=== PATIENT | female | born 1955 | race Caucasian/White ===

== ENCOUNTER 2018-05-14 13:43 | Inpatient (IN) ==
--- NOTE | 2018-05-14 14:17 | Emergency Department Report ---
General Adult HPI - General Chief complaint: GI Bleed Stated complaint: rectal bleeding Time Seen by Provider: 05/14/18 14:12 Source: patient Mode of arrival: wheelchair Limitations: no limitations - History of Present Illness HPI narrative: 62 F presents to the emergency department with the chief complaint of rectal bleeding. Patient noted onset of symptoms 3 days ago. She is not anticoagulated. She denies any pain or discomfort. She has noticed bright red blood in the toilet bowl with each bowel movement. She states that she has had "several bowel movements today." She has a history of GI bleeding in the past. She last had a colonoscopy/EGD within the past year with Dr. Victoria of general surgery. She feels generally weak and lightheaded. No other complaints or associated symptoms. She was at home when her symptoms began. - Related Data Home Medications Medication Instructions Recorded Confirmed Allopurinol [Zyloprim] 100 mg PO DAILY 10/31/17 05/14/18 Cholecalciferol (Vitamin D3) 5,000 unit PO DAILY 10/31/17 05/14/18 [Vitamin D3] Cyanocobalamin (Vitamin B-12) 500 mcg PO DAILY 10/31/17 05/14/18 [Vitamin B-12] Magnesium Oxide [Magnesium] 500 mg PO DAILY 10/31/17 05/14/18 Metoprolol Tartrate [Lopressor] 25 mg PO BID 10/31/17 05/14/18 Omeprazole [Prilosec] 20 mg PO BID 10/31/17 05/14/18 Aspirin [Adult Aspirin] 81 mg PO DAILY 05/14/18 05/14/18 Ferrous Sulfate [Iron] 325 mg PO DAILY 05/14/18 05/14/18 Meclizine [Antivert] 25 mg PO TID PRN 05/14/18 05/14/18 Naproxen Sodium [Aleve] 220 mg PO BID PRN 05/14/18 05/14/18 Allergies Allergy/AdvReac Type Severity Reaction Status Date / Time diazepam Allergy Unknown RASH Verified 05/14/18 13:55 Review of Systems Constitutional: Denies: fever, chills Eyes: Denies: eye pain, vision change ENT: Denies: ear pain, throat pain Cardiovascular: Denies: chest pain, palpitations Respiratory: Denies: cough, dyspnea Gastrointestinal: Reports: hematochezia. Denies: abdominal pain, nausea, vomiting, diarrhea, hematemesis Genitourinary: Denies: urgency, dysuria Musculoskeletal: Denies: back pain, arthralgia Integumentary: Denies: erythema, rash Neurological: Denies: headache, numbness, paresthesias Psychiatric: Denies: anxiety, depression Endocrine: Denies: polydipsia, polyuria Hematological/Lymphatic: Denies: easy bruising, lymphadenopathy Allergic/Immunologic: Denies: facial swelling, urticaria FORMERLY [facility], 1928–1983 Patient Stated Medical History Cerebrovascular Accident No Paralysis No Seizures No Syncope No Cataracts Yes Cardiac Arrhythmia Yes: Hx afib- currently SR with rate controlled Hypertension Yes Asthma No Bronchitis No Chronic Obstructive Pulmonary No Disease (COPD) Pneumonia No Pulmonary Edema No Pulmonary Embolism No Sleep Apnea No Tuberculosis No Other Respiratory No Diabetes Mellitus Type 1 No Diabetes Mellitus Type 2 No Gastroesophageal Reflux Yes Disease Hiatal Hernia Yes Other GI Yes: RECTAL BLEEDING,DIVERTICULOSIS Anemia Yes Osteoarthritis No Other Musculoskeletal No Anesthesia Reactions No Blood Transfusions No Chemotherapy No Malignant Hyperthermia No Other No Depression No Post Menopausal Yes Now No Clinic Medical History (Last Updated 05/14/18 @ 16:00 by Diana Quiñones, ANNMARIE) Alcohol abuse (Acute Medical) Allergic rhinitis (Acute Medical) Anemia (Acute Medical) Elevated liver enzymes (Acute Medical) Essential (primary) hypertension (Acute Medical) GERD (gastroesophageal reflux disease) (Acute Medical) Hyperlipidemia (Acute Medical) Paroxysmal atrial fibrillation (Acute Medical) Surgical History: 1. Tonsillectomy and adenoidectomy as a child at [place], [place]. 2. Left knee operation in [address] Joey Chavira at [place], [place]. 3. Left knee operation in [address] Joey Chavira and Dr. Mike Cerna at [place], [place]. 4. Left knee operation in [address] Cerna at [place], [place]. 5. Left hip intramedullary nailing on by Dr. José Dickerson at [place], [place]. Postoperative diagnosis was left intertrochanteric hip fracture. 6. Esophagogastroduodenoscopy with biopsies on 02/09/[address] Victoria at [facility] at [place], [place]. Postoperative diagnoses were chronic dysphagia, normal esophagram on 02/08/2016, chronic anemia, small hiatal hernia and antral gastritis and antral gastric erosions. Discharge diagnoses for this hospitalization in January 2016 were closed intertrochanteric fracture of left femur, tachycardia, chronic anemia, chronic elevated liver function tests, premature ventricular contractions, chronic alcohol dependence, and hypomagnesemia. 7. Cataract operation at one eye in November 2016 at the [facility] at [place], [place]. 8. Cataract operation at other eye in December 2016 at the [facility] at [place], [place]. 9. Esophagogastroduodenoscopy and total colonoscopy on 05/05/[address] Victoria at [facility] at [place], [place]. This was performed for evaluation of anemia. No cause for the anemia was found at esophagogastroduodenoscopy or total colonoscopy. The patient was found at esophagogastroduodenoscopy to have a small hiatal hernia. Findings were otherwise normal at the upper gastrointestinal tract. The patient did have some moderate sigmoid colon diverticulosis found at total colonoscopy. The patient also had some internal and external hemorrhoids with prominent internal hemorrhoids. The patient had been experiencing hematochezia which was thought to be due to bleeding from internal hemorrhoids. Family History: Family History (Last Updated 05/14/18 @ 16:04 by Diana Quiñones APRN) Father Heart attack of heart attack at age 55 Paternal Grandmother Heart disease Maternal Grandmother Heart disease Brother Motorcycle accident in 1972 from injuries Mother Unknown family medical history Brother Unknown family medical history - Social History Smoking status: Never smoker Substance use type: does not use Alcohol intake: current Alcohol intake frequency: 0-2 drinks per day Household members: none Does patient use chewing tobacco?: Yes ( uses chew every day for last 50 yrs) Physical Exam - Limitations Limitations: no limitations - General General appearance: alert, in no apparent distress - Normal Exams: Head:: Normocephalic without trauma Eyes:: Pupils are PERRLA w/ EOMI, No scleral icterus, irritation, or foreign bodies noted (Pale conjunctiva) ENMT:: No facial trauma, nasal exudates, pharyngeal erythema, or exudates are noted Dental: No fractured, loose, or missing teeth noted Neck:: Full range of motion, without adenopathy, JVD, bruits or thyromegaly Chest/Respirations:: Clear all willis, with good airflow, and symmetry bilaterally Cardiovascular:: Regular rate and rhythm, without murmur or gallop, Pulses 2+ all extremities, capillary refill, <2 seconds all extremities Abdomen:: Bowel sounds positive, soft, non-tender, non-distended, no hepatosplenomegaly, masses or bruits noted (Rectal Exam - maroon stool which was heme-positive.) Lymphatic:: No lymphadenopathy, or lymphedema noted Musculoskeletal:: No tenderness, or deformity noted, good range of motion, all extremities Integumentary:: No rashes, hives, or bruising noted, hair and nails, without abnormality Neurological:: Patient is alert, and oriented, cranial nerves, motor/sensory/ cerebellar, exams w/o gross deficits, to observation Psychiatric:: Patient exhibits, appropriate attention, emotion and affect Course Vital Signs Temperature 97.5 F 05/14/18 13:55 Pulse Rate 74 05/14/18 13:55 Respiratory Rate 19 05/14/18 13:55 Blood Pressure 86/47 05/14/18 13:55 Pulse Oximetry 95 05/14/18 13:55 Temperature 97.7 F 05/14/18 16:04 Pulse Rate 79 05/14/18 19:01 Respiratory Rate 25 H 05/14/18 19:16 Blood Pressure 99/59 05/14/18 19:01 Pulse Oximetry 100 05/14/18 19:16 Medical Decision Making - [facility] Narrative Medical decision making narrative: Labs were discussed in detail with the patient and questions are answered. Patient was given a 500 mL bolus of normal saline intravenously times one in the emergency department. Patient is typed and crossed for 2 units of packed red blood cells. Patient is ordered transfusion of red blood cells in the emergency department. Patient is discussed with Dr. Dean who will admit the patient to CCU for further evaluation and treatment. Dr. Dean will consult general surgery Dr. Victoria who has seen the patient in the past. Urinalysis is pending at time of admission and will be followed by accepting physician. Patient is admitted to the CCU in improved condition. No further orders from accepting physician who is in agreement with the current plan of management. Patient was given 40 mg of Protonix IV times one. Patient was given 40 meq of potassium iv x 1 in the ED. - Differential Diagnosis rectal bleeding, GI bleeding, gastritis, metabolic disorder, anemia - Lab Data Result diagrams: 05/14/18 14:25 05/14/18 14:25 Lab Results 05/14/18 05/14/18 05/14/18 Range/Units 14:25 14:25 14:25 WBC 10.8 (4.5-11.0) T/MM3 RBC 1.35 L (4.00-5.20) M/MM3 Hgb 5.0 L* (12-16) GM/DL Hct 16.0 L* (36-46) % MCV 118.5 H (80-100) UM3 MCH 37.0 H (26-34) UUG MCHC 31.3 (31-37) GM/DL RDW Std Deviation 86.0 H (36.9-50.2) FL Plt Count 123 L D (130-400) T/MM3 MPV 10.7 (9.4-12.4) UM3 Immature Gran % (Auto) 0.3 (0.0-0.5) % Neut % (Auto) 80.3 H (33-66) % Lymph % (Auto) 9.4 L (23-45) % Brantley % (Auto) 9.2 H (0-9.0) % Eos % (Auto) 0.5 (0-4) % Baso % (Auto) 0.3 (0-2) % Neut # (Auto) 8.7 H (1.8-7.7) T/MM3 Lymph # (Auto) 1.0 (1-4.8) T/MM3 Brantley # (Auto) 1.0 H (0-0.8) T/MM3 Eos # (Auto) 0.1 (0-0.5) T/MM3 Baso # (Auto) 0.0 (0-0.2) T/MM3 Abs Immat Gran (auto) 0.03 (0.00-0.03) T/MM3 INR 1.31 H (0.92-1.18) APTT 30.5 (24-36) SEC Turbidity < 20 (0-20) Sodium 144 (136-146) MEQ/L Potassium 2.5 L* (3.6-5) MEQ/L Chloride 105 (98-107) MEQ/L Carbon Dioxide 21 L (22-30) MEQ/L Anion Gap 18 H (5-15) meq/L BUN 9.0 (7-17) MG/DL Creatinine 0.9 (0.7-1.2) mg/dL Estimated Creat Clear 60 (>50) mL/min GFR Calculation 64 (>60) mL/min BUN/Creatinine Ratio 10 (6-26) RATIO Glucose 104 (65-110) MG/DL Calculated Osmolality 276 (261-280) MOSM/KG Calcium 8.5 (8.4-10.2) MG/DL Magnesium (1.6-2.3) MG/DL Iron (37-170) ug/dL TIBC (261-497) ug/dL % Saturation (9-55) % Ferritin (11-264) ng/mL Total Bilirubin 2.20 H (0.20-1.30) MG/DL Icterus Index < 2 (0-7) AST 84 H (14-36) U/L ALT 27 (1-35) U/L Alkaline Phosphatase 155 H (38-126) U/L Troponin I < 0.012 (0-0.12) ng/ml Total Protein 6.1 L (6.3-8.2) g/dL Albumin 2.8 L (3.5-5.0) g/dL Globulin 3.3 (2.4-3.6) G/DL Albumin/Globulin Ratio 0.8 L (1.1-2.2) RATIO Specimen Hemolysis < 15 (0-25) Ur Collection Type Urine Color (YELLOW) Urine Clarity Urine pH (5.0-8.0) Ur Specific Duncan (1.015-1.025) Urine Protein (NEGATIVE) Urine Glucose (UA) (NEGATIVE) Urine Ketones (NEGATIVE) Urine Occult Blood (NEGATIVE) Urine Nitrate (NEGATIVE) Urine Bilirubin (NEGATIVE) Urine Urobilinogen (NORMAL) EU/DL Ur Leukocyte Esterase (NEGATIVE) Urine RBC (0-3) /HPF Urine WBC (0-5) /HPF Urine WBC Clumps Ur Squamous Epith Cells Amorphous Sediment Urine Bacteria (NEGATIVE) Fatty Casts /LPF Ur Culture Indicated? Blood Type Antibody Screen Crossmatch (AHG) 05/14/18 05/14/18 05/14/18 Range/Units 14:25 14:25 14:25 WBC (4.5-11.0) T/MM3 RBC (4.00-5.20) M/MM3 Hgb (12-16) GM/DL Hct (36-46) % MCV (80-100) UM3 MCH (26-34) UUG MCHC (31-37) GM/DL RDW Std Deviation (36.9-50.2) FL Plt Count (130-400) T/MM3 MPV (9.4-12.4) UM3 Immature Gran % (Auto) (0.0-0.5) % Neut % (Auto) (33-66) % Lymph % (Auto) (23-45) % Brantley % (Auto) (0-9.0) % Eos % (Auto) (0-4) % Baso % (Auto) (0-2) % Neut # (Auto) (1.8-7.7) T/MM3 Lymph # (Auto) (1-4.8) T/MM3 Brantley # (Auto) (0-0.8) T/MM3 Eos # (Auto) (0-0.5) T/MM3 Baso # (Auto) (0-0.2) T/MM3 Abs Immat Gran (auto) (0.00-0.03) T/MM3 INR (0.92-1.18) APTT (24-36) SEC Turbidity (0-20) Sodium (136-146) MEQ/L Potassium (3.6-5) MEQ/L Chloride (98-107) MEQ/L Carbon Dioxide (22-30) MEQ/L Anion Gap (5-15) meq/L BUN (7-17) MG/DL Creatinine (0.7-1.2) mg/dL Estimated Creat Clear (>50) mL/min GFR Calculation (>60) mL/min BUN/Creatinine Ratio (6-26) RATIO Glucose (65-110) MG/DL Calculated Osmolality (261-280) MOSM/KG Calcium (8.4-10.2) MG/DL Magnesium 1.3 L (1.6-2.3) MG/DL Iron 39 (37-170) ug/dL TIBC 236 L (261-497) ug/dL % Saturation 17 (9-55) % Ferritin 36.0 (11-264) ng/mL Total Bilirubin (0.20-1.30) MG/DL Icterus Index (0-7) AST (14-36) U/L ALT (1-35) U/L Alkaline Phosphatase (38-126) U/L Troponin I (0-0.12) ng/ml Total Protein (6.3-8.2) g/dL Albumin (3.5-5.0) g/dL Globulin (2.4-3.6) G/DL Albumin/Globulin Ratio (1.1-2.2) RATIO Specimen Hemolysis (0-25) Ur Collection Type Urine Color (YELLOW) Urine Clarity Urine pH (5.0-8.0) Ur Specific Duncan (1.015-1.025) Urine Protein (NEGATIVE) Urine Glucose (UA) (NEGATIVE) Urine Ketones (NEGATIVE) Urine Occult Blood (NEGATIVE) Urine Nitrate (NEGATIVE) Urine Bilirubin (NEGATIVE) Urine Urobilinogen (NORMAL) EU/DL Ur Leukocyte Esterase (NEGATIVE) Urine RBC (0-3) /HPF Urine WBC (0-5) /HPF Urine WBC Clumps Ur Squamous Epith Cells Amorphous Sediment Urine Bacteria (NEGATIVE) Fatty Casts /LPF Ur Culture Indicated? Blood Type O Positive Antibody Screen Negative Crossmatch (AHG) See Detail 05/14/18 Range/Units 15:15 WBC (4.5-11.0) T/MM3 RBC (4.00-5.20) M/MM3 Hgb (12-16) GM/DL Hct (36-46) % MCV (80-100) UM3 MCH (26-34) UUG MCHC (31-37) GM/DL RDW Std Deviation (36.9-50.2) FL Plt Count (130-400) T/MM3 MPV (9.4-12.4) UM3 Immature Gran % (Auto) (0.0-0.5) % Neut % (Auto) (33-66) % Lymph % (Auto) (23-45) % Brantley % (Auto) (0-9.0) % Eos % (Auto) (0-4) % Baso % (Auto) (0-2) % Neut # (Auto) (1.8-7.7) T/MM3 Lymph # (Auto) (1-4.8) T/MM3 Brantley # (Auto) (0-0.8) T/MM3 Eos # (Auto) (0-0.5) T/MM3 Baso # (Auto) (0-0.2) T/MM3 Abs Immat Gran (auto) (0.00-0.03) T/MM3 INR (0.92-1.18) APTT (24-36) SEC Turbidity (0-20) Sodium (136-146) MEQ/L Potassium (3.6-5) MEQ/L Chloride (98-107) MEQ/L Carbon Dioxide (22-30) MEQ/L Anion Gap (5-15) meq/L BUN (7-17) MG/DL Creatinine (0.7-1.2) mg/dL Estimated Creat Clear (>50) mL/min GFR Calculation (>60) mL/min BUN/Creatinine Ratio (6-26) RATIO Glucose (65-110) MG/DL Calculated Osmolality (261-280) MOSM/KG Calcium (8.4-10.2) MG/DL Magnesium (1.6-2.3) MG/DL Iron (37-170) ug/dL TIBC (261-497) ug/dL % Saturation (9-55) % Ferritin (11-264) ng/mL Total Bilirubin (0.20-1.30) MG/DL Icterus Index (0-7) AST (14-36) U/L ALT (1-35) U/L Alkaline Phosphatase (38-126) U/L Troponin I (0-0.12) ng/ml Total Protein (6.3-8.2) g/dL Albumin (3.5-5.0) g/dL Globulin (2.4-3.6) G/DL Albumin/Globulin Ratio (1.1-2.2) RATIO Specimen Hemolysis (0-25) Ur Collection Type Urine, void-cc/notcc Urine Color Yellow (YELLOW) Urine Clarity Sl cloudy Urine pH 6.0 (5.0-8.0) Ur Specific Duncan 1.015 (1.015-1.025) Urine Protein 1+ A (NEGATIVE) Urine Glucose (UA) Negative (NEGATIVE) Urine Ketones 1+ A (NEGATIVE) Urine Occult Blood 2+ A (NEGATIVE) Urine Nitrate Positive A (NEGATIVE) Urine Bilirubin 2+ A (NEGATIVE) Urine Urobilinogen 1.0 (NORMAL) EU/DL Ur Leukocyte Esterase Trace A (NEGATIVE) Urine RBC 5-10 H (0-3) /HPF Urine WBC 5-10 H (0-5) /HPF Urine WBC Clumps Few Ur Squamous Epith Cells 5-10 Amorphous Sediment Few Urine Bacteria 3+ H (NEGATIVE) Fatty Casts 0-1 /LPF Ur Culture Indicated? Cult reflexed &setup Blood Type Antibody Screen Crossmatch (AHG) - EKG Data EKG #1 EKG results narrative: Sinus rhythm with first-degree AV block. 70 bpm. No STEMI. Left bundle branch block. Similar to EKG from 05/17/16. Critical Care Time Critical Care Time: Yes Total Critical Care Time: 43 Attestation: 43 minutes of critical care was assessed to the patient due to having a hemoglobin of 5.0. Patient will be transfused 2 units of packed red blood cells. Patient required complex medical decision making, repeated assessment at the bedside, and had potential for decompensation. Patient was admitted to the CCU for further evaluation and treatment. Vehicle care time was spent treating the patient, documenting the medical record, updating family, and making telephone calls on the patient's behalf. Disposition Clinical Impression: Severe anemia GI bleed Qualifiers: GI bleed type/associated pathology: unspecified gastrointestinal hemorrhage type Qualified Code(s): K92.2 - Gastrointestinal hemorrhage, unspecified Disposition: To [facility] Acute Care Condition: Stable Time of Disposition: 15:00 - Seen By: physician
[2018-05-14] MEDS: SALINE FLUSH 10ml SYRINGE IVF PRN (14:28)
--- OUTSIDE RECORDS SUMMARY | 2018-05-14 14:33 | External Medical Summary | Summary of Care ---
:1955 Author Name Crow Paris M.D. Address Unavailable Unavailable , Care Team Providers Name Role Phone Wellington Gutierrez, Crow Unavailable Unavailable Cain Solis II Unavailable Unavailable Functional Status Functional Status Health Issues Name Dates Details Functional status health issues are not documented Status: Cognitive Status Health Issues Name Dates Details Cognitive status health issues are not documented Status: Problems Name Dates Details Referred otalgia, right (388.72, H92.01) Status: Active Medications Name Dates Details Magnesium Oxide 400 MG Oral Tablet Refills: 0 Start : 26-Jun-2017 Active Omeprazole 20 MG Oral Capsule Delayed Release Refills: 0 Start : 26-Jun-2017 Active Vitamin D3 73513 UNIT Oral Capsule Refills: 0 Start : 26-Jun-2017 Active Allergies and Adverse Reactions Name Dates Details No Known Drug Allergies (Allergy) Status: Active Procedures Procedure Dates Details History of hip replacement Completed History of knee replacement Completed Immunization Name Dates Details Immunizations not documented Family History Unknown Family Member Name Dates Details Family history of hypertension (V17.49, Z82.49) Comments: Family History Status: Active Family history of cardiac disorder (V17.49, Z82.49) Comments: Family History Status: Active Father Name Dates Details Family history of cardiac disorder (V17.49, Z82.49) Status: Active Social History Name Dates Details - Status: Smoking Status Name Dates Details Never smoker Vital Signs Date Test Result Details [id number] Weight 134.25 lb Status: Height 63.5 in Status: Body Mass Index Calculated 23.41 kg/m2 Status: Body Surface Area Calculated 1.64 m2 Status: Temperature 98 f Status: O2 SAT 98 % Status: Results Date Description Value Details Results not documented Plan of Care Name Dates Details Planned Observations Planned Goals not documented Planned Encounters Appointment; Crow Paris M.D. On: 18-Sep-2017 12:45 Instructions Name Dates Details Instructions not documented Encounters Appointment; Crow Paris M.D. On: 26-Jun-2017 14:00 Encounter Diagnosis: Problem not documented
[2018-05-14] MEDS ORDERED: PANTOPRAZOLE 40 MG INJECTION IVP ONE (15:42)
[2018-05-14] MEDS: LIDOCAINE 1% INJ 10 MG, POTASSIUM CHLORIDE INJ 10 MEQ in NS 100 ML IV SCH ×4 (15:46→19:54)
--- NOTE | 2018-05-14 15:59 | History & Physical Report ---
History of Present Illness Date: 05/14/18 Chief complaint: Black/bloody stools, weak, dizzy HPI: Lucille Leavitt is a 62 year old woman who presented to the ED for further evaluation of 3-day history of frequent vasquez bloody stools and a couple episodes of black stools. She's felt very weak and dizzy and has felt like she might pass out. She has been very tired and fatigued. Occasionally she's had mild pelvic cramping and also feels a little bloated. She has not had an appetite but denies nausea or vomiting. She otherwise has been in her typical state of health, other than new scratches on her arms/legs from her new puppy. She denies any recent illness such as cough/congestion/sore throat, fevers/ chills, visual changes, headaches, chest pain, palpitations/fast HR, anxiety, difficulty breathing, dysuria, leg swelling or easy bruising/bleeding. She has had problems with rectal bleeding and anemia in the past but reports that they never are able to provide her with an answer to why she has recurrent bleeding. Her last EGD/colonoscopy was in Feb, [address] Victoria with postoperative diagnoses of internal and external hemorrhoids, moderate sigmoid colon diverticulosis. She also had bone marrow biopsy in March, which was negative for cancer. The patient admits to drinking 2-4 drinks of [place] and coke daily. She uses Aleve and/or ibuprofen occasionally but not routinely. She also takes ASA 81 mg daily. In the ED she was profoundly anemic with H&H of 5.0 and 16.0. Platelets were low at 123. K was also severely low at 2.5. Total bili was elevated at 2.20, AST 84, and Alk phos was 155. UA was suspicious for UTI though patient denied urinary symptoms. Her EKG showed LBBB and troponin was negative. She had low blood pressures (86/47) but was not tachycardic. She was given 500 mL fluid bolus and Protonix IV. She was typed and crossed for 2 units of PRBC. K bolus was also ordered by the ED provider. Dr. Dean was contacted and the patient was admitted to inpatient status, placed in the CCU, for symptomatic anemia secondary to GI blood loss and hypokalemia. LOS is expected to exceed 2 overnights. Review of Systems All systems PM: 10-point ROS was reviewed, no additional remarkable complaints except - Constitutional Constitutional: Present: as per HPI - EENMT Eyes: Present: as per HPI Nose: Absent: nosebleeds Mouth/Throat: Present: as per HPI - Cardiovascular Cardiovascular: Present: as per HPI Vascular: Absent: pedal edema - Respiratory Respiratory: Present: as per HPI - Gastrointestinal Gastrointestinal: Present: as per HPI - Genitourinary Genitourinary: Present: as per HPI - Musculoskeletal Musculoskeletal: Present: as per HPI, other (left knee pain) - Integumentary/Breasts Integumentary: Present: as per HPI - Neurological Neurological: Present: as per HPI - Psychiatric Psychiatric: Present: as per HPI - Endocrine Endocrine: Present: as per HPI - Hematologic/Lymphatic Hematologic/Lymphatic: Present: as per HPI - Allergic/Immunologic Allergic/Immunologic: Present: seasonal rhinorrhea Past Medical History Medical History: Medical History (Last Updated 05/14/18 @ 16:00 by Diana Quiñones, ANNMARIE) Alcohol abuse Allergic rhinitis Anemia Elevated liver enzymes Essential (primary) hypertension GERD (gastroesophageal reflux disease) Hyperlipidemia Paroxysmal atrial fibrillation Surgical History: 1. Tonsillectomy and adenoidectomy as a child at [place], [place]. 2. Left knee operation in [address] Joey Chavira at [place], [place]. 3. Left knee operation in [address] Joey Chavira and Dr. Mike Cerna at [place], [place]. 4. Left knee operation in [address] Cerna at [facility] at [place], [place]. 5. Left hip intramedullary nailing on by Dr. José Dickerson at [facility] at [place], [place]. Postoperative diagnosis was left intertrochanteric hip fracture. 6. Esophagogastroduodenoscopy with biopsies on 02/09/[address] Victoria at [facility] at [place], [place]. Postoperative diagnoses were chronic dysphagia, normal esophagram on 02/08/2016, chronic anemia, small hiatal hernia and antral gastritis and antral gastric erosions. Discharge diagnoses for this hospitalization in January 2016 were closed intertrochanteric fracture of left femur, tachycardia, chronic anemia, chronic elevated liver function tests, premature ventricular contractions, chronic alcohol dependence, and hypomagnesemia. 7. Cataract operation at one eye in November 2016 at the [facility] [place] at [place], [place]. 8. Cataract operation at other eye in December 2016 at the [facility] at [place], [place]. 9. Esophagogastroduodenoscopy and total colonoscopy on 05/05/[address] Victoria at [facility] at [place], [place]. This was performed for evaluation of anemia. No cause for the anemia was found at esophagogastroduodenoscopy or total colonoscopy. The patient was found at esophagogastroduodenoscopy to have a small hiatal hernia. Findings were otherwise normal at the upper gastrointestinal tract. The patient did have some moderate sigmoid colon diverticulosis found at total colonoscopy. The patient also had some internal and external hemorrhoids with prominent internal hemorrhoids. The patient had been experiencing hematochezia which was thought to be due to bleeding from internal hemorrhoids. 10. Esophagogastroduodenoscopy and total colonoscopy on 03/13/[address] Victoria at [facility] at [place], [place]. Postoperative diagnoses: anemia, small hiatal hernia, internal and external hemorrhoids, moderate sigmoid colon diverticulosis. 11. Bone marrow biopsy on 04/10/[address] Victoria. Pathology report was mostly normocellular marrow, no significant dysplasia or excess blasts, no evidence of marrow infiltrative process, up to 3% plasma cells, absent iron stores. Family History: As Above - Social History Smoking status: Never smoker (However patient does chew 2 cans per month) Substance use type: does not use Alcohol intake: current (started drinking at age 18) Alcohol intake frequency: 3 or more drinks per day (2-4 drinks of [place] and Coke) Last drink: days (ago) (2) Household members: none Current occupational status: disabled (left knee) Medications Home Medications Medication Instructions Recorded Confirmed Type Allopurinol [Zyloprim] 100 mg PO DAILY 10/31/17 05/14/18 History Cholecalciferol (Vitamin D3) 5,000 unit PO DAILY 10/31/17 05/14/18 History [Vitamin D3] Cyanocobalamin (Vitamin B-12) 500 mcg PO DAILY 10/31/17 05/14/18 History [Vitamin B-12] Magnesium Oxide [Magnesium] 500 mg PO DAILY 10/31/17 05/14/18 History Metoprolol Tartrate [Lopressor] 25 mg PO BID 10/31/17 05/14/18 History Omeprazole [Prilosec] 20 mg PO BID 10/31/17 05/14/18 History Aspirin [Adult Aspirin] 81 mg PO DAILY 05/14/18 05/14/18 History Ferrous Sulfate [Iron] 325 mg PO DAILY 05/14/18 05/14/18 History Meclizine [Antivert] 25 mg PO TID PRN 05/14/18 05/14/18 History Naproxen Sodium [Aleve] 220 mg PO BID PRN 05/14/18 05/14/18 History Allergies Allergy/AdvReac Type Severity Reaction Status Date / Time diazepam Allergy Unknown RASH Verified 05/14/18 13:55 Exam Vital Signs: Temperature 97.5 F 05/14/18 13:55 Pulse Rate 69 05/14/18 15:34 Respiratory Rate 16 05/14/18 15:05 Blood Pressure 99/50 05/14/18 15:34 Pulse Oximetry 100 05/14/18 15:34 Height/Weight/BMI: Height 1.65 m Weight 57.9 kg - Constitutional Present: no acute distress, well nourished, well developed - Routine HEENT Exam Head: Present: normocephalic Eye: Present: PERRL. Absent: conjunctival icterus, scleral injection, conjunctivae pink (pale) ENT: Present: mucous membranes moist - Routine Neck Exam Present: supple - Routine Respiratory Exam Present: CTA bilaterally - Routine Cardiovascular Exam Present: RRR, S1, S2, murmur (2/6 NOEMI) - Routine Abdominal Exam Present: non tender, distended (mild). Absent: normoactive bowel sounds ( hypoactive) - Routine Extremities Exam Present: no edema, pulses intact. Absent: calf tenderness - Routine Skin Exam Present: intact, dry, pallor, warm - Routine Neurological Exam Present: alert, oriented X3, CN II-XII intact, moving all extremities, vision grossly intact, hearing grossly intact, normal speech. Absent: sensory deficit , motor deficit, altered mental status, facial asymmetry - Routine Psychiatric Exam Present: normal affect, normal thought process, cooperative Results - Labs CBC & Chem 7: 05/14/18 14:25 05/14/18 14:25 Microbiology Results: Microbiology 05/14/18 15:15 Urine, Voided (Cc/notcc) Urine Culture - Preliminary Culture Initiated - Results Pending Assessment and Plan (1) GI bleed Current visit: Yes Status: Acute Assessment and Plan: Assessment GI bleed ABLA superimposed on chronic iron deficiency anemia. In February her hgb was 8.0. Hypokalemia, POA Thrombocytopenia Chronic macrocytic anemia Alcohol abuse Transaminitis, chronic GERD Paroxysmal a-fib, not on anticoagulation HTN Plan Admit, inpatient status to CCU. Anemia due to GI blood loss: PRBC transfusion x2 units already ordered. Consult Dr. Victoria. Hold ASA, NSAIDS. Protonix IV BID. Diet; Clear liquids. Check iron studies prior to transfusion. IVF: 1/2 NS with KCl 20 mEq @ 100 mL/hr. Last EGD and colonoscopy on 03/13/18, Postoperative diagnoses: anemia, small hiatal hernia, internal and external hemorrhoids, moderate sigmoid colon diverticulosis Hypokalemia: IV bolus ordered Check mag level Telemetry Alcohol use: Seizure precautions (note above allergy to diazepam was not included in [facility] records, however, lisinopril causes a cough) Folate and thiamine Ativan/Serax PRN for CIWA >8 Thrombocytopenia appears to be a new findings. Hx of chronically elevated LFTs per [facility] records. Pt is not interested in quitting drinking. Advanced directives: None currently. Would like to name cousin Jose as DPOA but hasn't yet talked to him about it. Code status: Full code. Discussed with ED provider, RN, and Dr. Dean. [facility] and prior [facility] records were reviewed. DVT Prophylaxis: SCD's GI Prophylaxis: Protonix Resuscitation Status: Full Code - Physician Narrative Physician: Ute Dean MD Narrative: Date: 05/14/18 Time: 0 I have independently evaluated and examined this patient. I reviewed the chart, the patient's history, and the C[employer]IFIER/PA's documented findings as above. We discussed and formulated the assessment and plan as above with additions as below: Mrs. Leavitt describes 3 days of right red blood per rectum with progressive weakness/lightheadedness. Amount of blood loss has slowed down but not stopped. She's had some abdominal cramping which she characterizes as "like menstrual cramps". She denies heartburn, indigestion, or other dyspeptic symptoms. Results of recent endoscopic studies reviewed with Dr. Victoria who indicated prep for colonoscopy precluded diagnostic study. NAD, alert; multiple superficial ulcerations present on the back and chest ( back lesions all in area consistent with scratching), one lesion on right orr Respirations nonlabored Abdomen soft, moderately distended, bowel sounds present, nontender Potassium 2.5, hemoglobin 5.0 with MCV 118.5; INR 1.3. Bilirubin 2.2 AST 84, ALT normal. Acute GI bleed, likely lower-history most compatible with diverticular bleed. Discussed with Dr. Matson prior to admission and with Dr. Victoria following admission. EGD anticipated tomorrow and colonoscopy in 2-3 days following prep that will permit diagnostic study. Repeat potassium with follow-up hemoglobin to ensure adequate replacement. Macrocytic anemia felt due to chronic alcohol use per hematology; low platelet count and abnormal liver enzymes consistent with same. Hospital Course Summary Disclaimer: The visit summary below is not to be considered part of the above Progress Note. Hospital Course: 05/14/18 Admit, inpatient status to CCU. Anemia due to GI blood loss: PRBC transfusion x2 units already ordered. Consult Dr. Victoria. Hold ASA, NSAIDS. Protonix IV BID. Diet; Clear liquids. Check iron studies prior to transfusion. IVF: 1/2 NS with KCl 20 mEq @ 100 mL/hr. Last EGD and colonoscopy on 03/13/18, Postoperative diagnoses: anemia, small hiatal hernia, internal and external hemorrhoids, moderate sigmoid colon diverticulosis Hypokalemia: IV bolus ordered Check mag level Telemetry Alcohol use: Seizure precautions (note above allergy to diazepam was not included in [facility] records, however, lisinopril causes a cough) Folate and thiamine Ativan/Serax PRN for CIWA >8 Thrombocytopenia appears to be a new findings. Hx of chronically elevated LFTs per [place] records. Pt is not interested in quitting drinking. Advanced directives: None currently. Would like to name cousin Jose as DPOA but hasn't yet talked to him about it. Code status: Full code.
[2018-05-14 16:06] VITALS: BMI 21.1
[2018-05-14] MEDS ORDERED: SENNA + DOCUSATE TABLET PO PRN (16:22)
[2018-05-14] MEDS ORDERED: BISACODYL 10 MG SUPPOSITORY RECTALLY PRN (16:22)
[2018-05-14] MEDS ORDERED: OXAZEPAM 15 MG CAPSULE PO PRN (16:26)
[2018-05-14] MEDS ORDERED: ACETAMINOPHEN 650 MG/20.3 ML SOLUTION PO PRN (17:20)
[2018-05-14] MEDS: 1/2 NS IV SCH (17:21)
[2018-05-14] MEDS: KCL IV SCH (17:21)
[2018-05-14] MEDS: ACETAMINOPHEN 325 MG TABLET PO PRN ×2 (17:33→22:25)
[2018-05-14] MEDS ORDERED: Bisacodyl EC TAB 5 MG TABLET PO ONE (18:34)
--- NOTE | 2018-05-14 19:58 | Consultation ---
DATE OF CONSULTATION 05/14/2018 HISTORY OF PRESENT ILLNESS This patient is 62 years old. This patient does have a history of chronic anemia. She also has a history of chronic elevation of liver function tests. She does have a history of alcohol dependence. She drinks three to four bourbon and Cokes a day. She has reported in the past that she has been drinking this much since age 18. The patient has in the past had occasional bright red bleeding from the rectum. There is no history of any colon cancer in the family of this patient. The patient did undergo esophagogastroduodenoscopy and total colonoscopy on by Dr. Victoria at [facility]. This was performed for evaluation of anemia. No cause for anemia was found at esophagogastroduodenoscopy or colonoscopy at this time. The patient did have some internal and external hemorrhoids with prominent internal hemorrhoids. The patient had an office visit with Ale Cotton APRN on 02/14/2018. The patient did complain of fatigue at this time. CBC was performed on 02/14/2018. Hemoglobin was 8. Hematocrit was 24.4. Platelet count was 231,000 which was normal. White blood cell count was 8300 which was normal. The patient did have stool Hemoccult tests performed. The patient did report having three positive stool Hemoccult tests at this time. The patient did undergo esophagogastroduodenoscopy and total colonoscopy on by Dr. Victoria at [facility]. The patient did have a small hiatal hernia found at esophagogastroduodenoscopy. Findings at esophagogastroduodenoscopy were otherwise normal except for the small hiatal hernia. No bright red blood or old blood was seen at the upper gastrointestinal tract. No source for bleeding which would lead to anemia was found at the upper gastrointestinal tract. The patient did have a very poor bowel prep at the time of the total colonoscopy procedure on 03/13/2018. The patient did have a large amount of solid stool throughout the colon. The patient had a large amount of solid stool at the ascending colon. No colon or rectal tumors were seen at the time of the operation. No colon or rectal polyps were seen at the time of the operation. The ability to see any tumors or polyps was compromised by all the solid stool in the colon, however. The patient did have a few small amounts of dark red blood adherent to mucosa at the proximal ascending colon. These were just some small streaks of blood on the ascending colon mucosa. The source of these small amounts of dark red blood at the mucosa at the proximal ascending colon was unknown. No obvious angiodysplasia lesion was identified at the ascending colon at this time. No obvious inflammatory bowel disease was seen at the ascending colon. The ascending colon was filled with a large amount of solid stool, however, and this could easily obscure any source for the small amount of dark red blood which was seen at the ascending colon. All of the large amount of solid stool in the ascending colon did make it difficult to identify where the small amount of dark red blood might be coming from. The patient was noted to have sigmoid colon diverticulosis at this colonoscopy. The patient was also noted to have internal and external hemorrhoids with some prominent internal hemorrhoids. No obvious cause for anemia was found at total colonoscopy because of the very poor bowel prep with the entire colon filled with solid stool. Dr. Victoria did inform the patient of the fact that there was so much solid stool in her colon that we could not tell much about her colon at this total colonoscopy procedure. Dr. Victoria did offer to have the patient get a better bowel prep and come right back to repeat the colonoscopy procedure to look for a source for the anemia. The patient did decline the offer to repeat the colonoscopy immediately after further bowel prep. The patient was subsequently referred to Dr. Christopher for further evaluation of anemia. Dr. Christopher did think the patient had macrocytic anemia. He ordered multiple blood tests for evaluation of anemia. He did recommend that the patient undergo bone marrow aspiration and biopsy for further evaluation of her anemia. The patient did undergo bone marrow aspiration and biopsy on [address] Victoria at [facility]. The pathology report on the bone marrow aspiration and biopsy specimen showed mostly normocellular marrow for the patient's age. There was no significant dysplasia. There were no infiltrates with metastatic malignancy. There were absent iron stores. The pathologist felt that the patient's severe anemia appeared to be of multifactorial etiology. The pathologist thought that the anemia was related to slightly hypoproliferative marrow, nutritional deficiency and possible peripheral destruction. Dr. Christopher had a followup office visit with the patient on 04/12/2018. He saw the patient for followup of her diagnosis of macrocytic anemia. The patient had undergone an extensive workup which had not shown any clear-cut abnormality. Lab work testing and hemolysis all came back fine. The results of the bone marrow aspiration and biopsy looked good. After getting further history from the patient, it did sound to Dr. Christopher like the patient drinks a lot of alcohol every day and this could be contributing to her macrocytic picture. Dr. Christopher did encourage the patient to quit drinking. He did think that this could be contributing to her bone marrow and liver toxicity. His diagnosis for the patient was macrocytic anemia. Dr. Christopher did start the patient on some oral iron treatment b.i.d. Dr. Christopher had another followup office visit with the patient on 05/03/2018. He thought that the patient had macrocytic anemia with a component of alcohol- related macrocytic anemia. Dr. Christopher thought that the bone marrow biopsy did show some iron deficiency with some hypoplasia. He thought this could be direct toxicity to the bone marrow from the alcohol. He did plan to have the patient treated with oral iron. He thought the patient might need another GI workup. He did ask the patient to cut down on her drinking of alcohol and try to take oral iron. The patient has continued to drink three or four bourbon and Coke alcoholic drinks each day. The patient does use Aleve and ibuprofen occasionally but not routinely. She takes aspirin 81 mg p.o. daily. The patient states that she did experience the onset of some bright red rectal bleeding on 05/11/2018. She states that the bleeding was heavy enough that she had bright red blood running down each of her legs on the morning of 05/11/2018. She did not seek any medical treatment for this. The patient states that she continued to have bright red rectal bleeding on 05/11/2018, 05/12/2018, 05/13/2018 and 2017. She did finally come in to [facility] for evaluation on 2017. The patient was noted at the emergency room to have a hemoglobin of 5 and hematocrit of 16. The patient was admitted to the critical care unit from the emergency room. White blood cell count is 10,800. Platelet count is 123, 000 which is low. Serum potassium is 2.5. The patient states that she has not had any type of recent abdominal pain over the last few days. She states that the bright red rectal bleeding has been slowing down a little bit each day since it began on 05/11/2018. PAST MEDICAL HISTORY PREVIOUS OPERATIONS 1. Tonsillectomy and adenoidectomy as a child at [facility] at [place], [place]. 2. Left knee operation in [address] Joey Chavira at [facility] at [place], [place]. 3. Left knee operation in [address] Joey Chavira and Dr. Mike Cerna at [facility] at [place], [place]. 4. Left knee operation in [address] Cerna at [facility] at [place], [place]. 5. Left hip intramedullary nailing on 02/04/[address] José Dickerson at [facility] at [place], [place]. Postoperative diagnosis was left intertrochanteric hip fracture. 6. Esophagogastroduodenoscopy with biopsies on 02/09/[address] Victoria at [facility] at [place], [place]. Postoperative diagnoses were chronic dysphagia, normal esophagram on 02/08/2016, chronic anemia, small hiatal hernia and antral gastritis and antral gastric erosions. Discharge diagnoses for this hospitalization in January 2016 were closed intertrochanteric fracture of left femur, tachycardia, chronic anemia, chronic elevated liver function tests, premature ventricular contractions, chronic alcohol dependence, and hypomagnesemia. 7. Cataract operation at one eye in November 2016 at the [facility] at [place], [place]. 8. Cataract operation at other eye in December 2016 the [facility] at [place], [place]. 9. Esophagogastroduodenoscopy and total colonoscopy on 05/05/[address] Victoria at [facility] at [place], [place]. This was performed for evaluation of anemia. No cause for the anemia was found at esophagogastroduodenoscopy and total colonoscopy. The patient was found at esophagogastroduodenoscopy to have a small hiatal hernia. Findings were otherwise normal at the upper gastrointestinal tract. The patient did have some moderate sigmoid colon diverticulosis found at total colonoscopy. The patient also had some internal and external hemorrhoids with prominent internal hemorrhoids. The patient had been experiencing hematochezia which was thought to be due to bleeding from internal hemorrhoids. 10. Cystoscopy in [address] Satuffer at his office at [place], [place]. This was performed for evaluation of microscopic hematuria. The patient states that findings at the cystoscopy procedure were negative. 11. Esophagogastroduodenoscopy and total colonoscopy on 03/13/[address] Victoria at [facility] at [place], [place]. The patient did have a small hiatal hernia found at esophagogastroduodenoscopy. Findings were otherwise completely normal at esophagogastroduodenoscopy. The patient did have a very poor bowel prep at the time of the total colonoscopy portion of this procedure. There was solid stool throughout the colon. The patient did have some internal and external hemorrhoids with prominent internal hemorrhoids. The patient had some moderate sigmoid colon diverticulosis. There was a small amount of dark red blood seen at the mucosa of the ascending colon during this procedure but the entire ascending colon was filled with solid stool and no source for this small amount of dark red blood was able to be seen because of all the solid stool in the colon at this time. 12. Bone marrow aspiration and biopsy on 04/10/[address] Victoria at [facility] at [place], [place]. Postoperative diagnosis was anemia. The pathology report for the bone marrow aspiration and biopsy specimen showed mostly normocellular marrow for the patient's age. There was no significant dysplasia. There were no infiltrates with metastatic malignancy. There were absent iron stores. The pathologist felt that the patient's severe anemia appeared to be of multifactorial etiology. PHYSICAL EXAM VITAL SIGNS: Temperature is 97.7 degrees Fahrenheit oral. Pulse is 73. Respiratory rate is 20. Oxygen saturation is 100% on room air. ABDOMEN: No abdominal masses. No abdominal tenderness. RECTUM: The patient does have internal and external hemorrhoids with prominent internal hemorrhoids. I did examine the internal hemorrhoids at the time of digital rectal examination today and could not find any obvious bleeding point at any of the internal hemorrhoids. The patient does have a small amount of dark red blood in the rectal vault at this time. The rectal vault is otherwise normal. There is no stool at the rectal vault. There are no rectal masses. There are no anal fissures. LABORATORY DATA Hemoglobin is 5. Hematocrit is 16. White blood cell count is 10,800. Platelet count is 123,000 which is low. INR is 1.31. Serum potassium is 2.5. Total bilirubin is 2.2. AST is 84. ALT is 27. Alkaline phosphatase is 155. IMPRESSION 1. Acute lower GI tract bleeding with hematochezia since 05/11/2018. 2. Anemia due to acute gastrointestinal tract blood loss superimposed on chronic anemia. 3. Small hiatal hernia. 4. Moderate sigmoid colon diverticulosis. 5. Internal and external hemorrhoids with prominent internal hemorrhoids. 6. Thrombocytopenia. 7. Status post total colonoscopy with very poor bowel prep with solid stool throughout the entire colon on 03/13/2018. 10. Chronic elevation of liver function tests. 11. History of alcohol dependence. 12. Essential hypertension. 13. Hyperlipidemia. 14. Gastroesophageal reflux disease. 15. Paroxysmal atrial fibrillation. RECOMMENDATIONS 1. I agree with the decision to give the patient a blood transfusion at this time to treat the severe anemia. 2. Correct hypokalemia. 3. Continue to monitor hemoglobin and hematocrit. 4. I agree with the administration of some intravenous Protonix at this time. 5. Esophagogastroduodenoscopy and colonoscopy for evaluation of the acute gastrointestinal tract bleeding. We need to get a good bowel prep at this time so that the colonic mucosa can be visualized at the time of the colonoscopy procedure. MTDD
--- NOTE | 2018-05-14 20:08 | Operative Note ---
DATE OF CONSULTATION 05/14/2018 HISTORY OF PRESENT ILLNESS This patient is 62 years old. This patient does have a history of chronic anemia. She also has a history of chronic elevation of liver function tests. She does have a history of alcohol dependence. She drinks three to four bourbon and Cokes a day. She has reported in the past that she has been drinking this much since age 18. The patient has in the past had occasional bright red bleeding from the rectum. There is no history of any colon cancer in the family of this patient. The patient did undergo esophagogastroduodenoscopy and total colonoscopy on by Dr. Victoria at [facility]. This was performed for evaluation of anemia. No cause for anemia was found at esophagogastroduodenoscopy or colonoscopy at this time. The patient did have some internal and external hemorrhoids with prominent internal hemorrhoids. The patient had an office visit with Ale Cotton APRN on 02/14/2018. The patient did complain of fatigue at this time. CBC was performed on 02/14/2018. Hemoglobin was 8. Hematocrit was 24.4. Platelet count was 231,000 which was normal. White blood cell count was 8300 which was normal. The patient did have stool Hemoccult tests performed. The patient did report having three positive stool Hemoccult tests at this time. The patient did undergo esophagogastroduodenoscopy and total colonoscopy on by Dr. Victoria at [facility]. The patient did have a small hiatal hernia found at esophagogastroduodenoscopy. Findings at esophagogastroduodenoscopy were otherwise normal except for the small hiatal hernia. No bright red blood or old blood was seen at the upper gastrointestinal tract. No source for bleeding which would lead to anemia was found at the upper gastrointestinal tract. The patient did have a very poor bowel prep at the time of the total colonoscopy procedure on 03/13/2018. The patient did have a large amount of solid stool throughout the colon. The patient had a large amount of solid stool at the ascending colon. No colon or rectal tumors were seen at the time of the operation. No colon or rectal polyps were seen at the time of the operation. The ability to see any tumors or polyps was compromised by all the solid stool in the colon, however. The patient did have a few small amounts of dark red blood adherent to mucosa at the proximal ascending colon. These were just some small streaks of blood on the ascending colon mucosa. The source of these small amounts of dark red blood at the mucosa at the proximal ascending colon was unknown. No obvious angiodysplasia lesion was identified at the ascending colon at this time. No obvious inflammatory bowel disease was seen at the ascending colon. The ascending colon was filled with a large amount of solid stool, however, and this could easily obscure any source for the small amount of dark red blood which was seen at the ascending colon. All of the large amount of solid stool in the ascending colon did make it difficult to identify where the small amount of dark red blood might be coming from. The patient was noted to have sigmoid colon diverticulosis at this colonoscopy. The patient was also noted to have internal and external hemorrhoids with some prominent internal hemorrhoids. No obvious cause for anemia was found at total colonoscopy because of the very poor bowel prep with the entire colon filled with solid stool. Dr. Victoria did inform the patient of the fact that there was so much solid stool in her colon that we could not tell much about her colon at this total colonoscopy procedure. Dr. Victoria did offer to have the patient get a better bowel prep and come right back to repeat the colonoscopy procedure to look for a source for the anemia. The patient did decline the offer to repeat the colonoscopy immediately after further bowel prep. The patient was subsequently referred to Dr. Christopher for further evaluation of anemia. Dr. Christopher did think the patient had macrocytic anemia. He ordered multiple blood tests for evaluation of anemia. He did recommend that the patient undergo bone marrow aspiration and biopsy for further evaluation of her anemia. The patient did undergo bone marrow aspiration biopsy on 04/10/[address] Victoria at [facility]. The pathology report on the bone marrow aspiration and biopsy specimen showed mostly normal cellular marrow for the patient's age. There was no significant dysplasia. There were no infiltrates with metastatic malignancy. There were absent iron stores. The pathologist felt that the patient's severe anemia appeared to be of multifactorial etiology. The pathologist thought that the anemia was related to slightly hypoproliferative marrow, nutritional deficiency and possible peripheral destruction. Dr. Christopher had a followup office visit with the patient on 04/12/2018. He saw the patient for followup of her diagnosis of macrocytic anemia. The patient had undergone an extensive workup which had not shown any clear-cut abnormality. Lab work testing and hemolysis all came back fine. The results of the bone marrow aspiration biopsy looked good. After getting further history from the patient, I did * * to Dr. Christopher * * the patient drinks a lot of alcohol every day and this could be contributing to her macrocytic picture. Dr. Christopher did encourage the patient to quit drinking. He did think that this could be contributing to her bone marrow and liver toxicity. His diagnosis for the patient was macrocytic anemia. Dr. Christopher did start the patient on some oral iron treatment b.i.d. Dr. Christopher had another followup office visit with the patient on 05/03/2018. He thought that the patient had macrocytic anemia with a component of alcohol- related macrocytic anemia. Dr. Christopher thought that the bone marrow biopsy did show some iron deficiency with some hypoplasia. He thought this could be direct toxicity to the bone marrow from the alcohol. He did plan to have the patient treated with oral iron. He thought the patient might need another GI workup. He did ask the patient to cut down on her drinking of alcohol and try to take oral iron. The patient has continued to drink three or four bourbon and Coke alcoholic drinks each day. The patient does use Aleve and ibuprofen occasionally but not routinely. She takes aspirin 81 mg p.o. daily. The patient states that she did experience the onset of some bright red rectal bleeding on 05/11/2018. She states that the bleeding was heavy enough that she had bright red blood running down each of her legs on the morning of 05/11/2018. She did not seek any medical treatment for this. The patient states that she continued to have bright red rectal bleeding on 05/11/2018, 05/12/2018, 05/13/2018 and 2017. She did finally come in to [facility] for evaluation on 2017. The patient was noted at the emergency room to have a hemoglobin of 5 and hematocrit of 16. The patient was admitted to the critical care unit from the emergency room. White blood cell count is 10,800. Platelet count is 123, 000 which is low. Serum potassium is 2.5. The patient states that she has not had any type of recent abdominal pain over the last few days. She states that the bright red rectal bleeding has been slowing down a little bit each day since it began on 05/11/2018. PAST MEDICAL HISTORY PREVIOUS OPERATIONS 1. Tonsillectomy and adenoidectomy as a child at [place], [place]. 2. Left knee operation in [address] Joey Chavira at [facility] at [place], [place]. 3. Left knee operation in [address] Joey Chavira and Dr. Mike Cerna at [place], [place]. 4. Left knee operation in [address] Cerna at [place], [place]. 5. Left hip intramedullary nailing on 02/04/[address] oJsé Dickerson at [facility] at [place], [place]. Postoperative diagnosis was left intertrochanteric hip fracture. 6. Esophagogastroduodenoscopy with biopsies on 02/09/[address] Victoria at [facility] at [place], [place]. Postoperative diagnoses were chronic dysphagia, normal esophagram on 02/08/2016, chronic anemia, small hiatal hernia and antral gastritis and antral gastric erosions. Discharge diagnoses for this hospitalization in January 2016 were closed intertrochanteric fracture of left femur, tachycardia, chronic anemia, chronic elevated liver function tests, premature ventricular contractions, chronic alcohol dependence, and hypomagnesemia. 7. Cataract operation at one eye in November 2016 at the [facility] at [place], [place]. 8. Cataract operation at other eye in December 2016 the [facility] at [place], [place]. 9. Esophagogastroduodenoscopy and total colonoscopy on 05/05/[address] Victoria at [facility] at [place], [place]. This was performed for evaluation of anemia. No cause for the anemia was found at esophagogastroduodenoscopy and total colonoscopy. The patient was found at esophagogastroduodenoscopy to have a small hiatal hernia. Findings were otherwise normal at the upper gastrointestinal tract. The patient did have some moderate sigmoid colon diverticulosis found at total colonoscopy. The patient also had some internal and external hemorrhoids with prominent internal hemorrhoids. The patient had been experiencing hematochezia which was thought to be due to bleeding from internal hemorrhoids. 10. Cystoscopy in [address] Stauffer at his office at [place], [place]. This was performed for evaluation of microscopic hematuria. The patient states that findings at the cystoscopy procedure were negative. 11. Esophagogastroduodenoscopy and total colonoscopy on 03/13/[address] Victoria at [facility] at [place], [place]. The patient did have a small hiatal hernia found at esophagogastroduodenoscopy. Findings were otherwise completely normal at esophagogastroduodenoscopy. The patient did have a very poor bowel prep at the time of the total colonoscopy portion of this procedure. There was solid stool throughout the colon. The patient did have some internal and external hemorrhoids with prominent internal hemorrhoids. The patient had some moderate sigmoid colon diverticulosis. There was a small amount of dark red blood seen at the mucosa of the ascending colon during this procedure but the entire ascending colon was filled with solid stool and no source for this small amount of dark red blood was able to be seen because of all the solid stool in the colon at this time. 12. Bone marrow aspiration and biopsy on 04/10/[address] Victoria at [facility] at [place], [place]. Postoperative diagnosis was anemia. The pathology report for the bone marrow aspiration and biopsy specimen showed mostly normal cellular marrow for the patient's age. There was no significant dysplasia. There were no infiltrates with metastatic malignancy. There were absent iron stores. The pathologist felt that the patient's severe anemia appeared to be of multifactorial etiology. PHYSICAL EXAM VITAL SIGNS: Temperature is 97.7 degrees Fahrenheit oral. Pulse is 73. Respiratory rate is 20. Oxygen saturation is 100% on room air. ABDOMEN: No abdominal masses. No abdominal tenderness. RECTUM: The patient does have internal and external hemorrhoids with prominent internal hemorrhoids. I did examine the internal hemorrhoids at the time of digital rectal examination today and could not find any obvious bleeding point at any of the internal hemorrhoids. The patient does have a small amount of dark red blood in the rectal vault at this time. The rectal vault is otherwise normal. There is no stool at the rectal vault. There are no rectal masses. There are no anal fissures. LABORATORY DATA Hemoglobin is 5. Hematocrit is 16. White blood cell count is 10,800. Platelet count is 123,000 which is low. INR is 1.31. Serum potassium is 2.5. Total bilirubin is 2.2. AST is 84. ALT is 27. Alkaline phosphatase is 155. IMPRESSION 1. Acute lower GI tract bleeding with hematochezia since 05/11/2018. 2. Anemia due to acute gastrointestinal tract blood loss superimposed on chronic anemia. 3. Small hiatal hernia. 4. Moderate sigmoid colon diverticulosis. 5. Internal and external hemorrhoids with prominent internal hemorrhoids. 6. Thrombocytopenia. 7. Status post total colonoscopy with very poor bowel prep with solid stool throughout the entire colon on 03/13/2018. 10. Chronic elevation of liver function tests. 11. History of alcohol dependence. 12. Essential hypertension. 13. Hyperlipidemia. 14. Gastroesophageal reflux disease. 15. Paroxysmal atrial fibrillation. RECOMMENDATIONS 1. I agree with the decision to give the patient a blood transfusion at this time to treat the severe anemia. 2. Correct hypokalemia. 3. Continue to monitor hemoglobin and hematocrit. 4. I agree with the administration of some intravenous Protonix at this time. 5. Esophagogastroduodenoscopy and colonoscopy for evaluation of the acute gastrointestinal tract bleeding. We need to get a good bowel prep at this time so that the colonic mucosa can be visualized at the time of the colonoscopy procedure. MTDD
[2018-05-14] MEDS: PANTOPRAZOLE 40 MG INJECTION IVP SCH (21:00)
[2018-05-14] MEDS ORDERED: MAGNESIUM CITRATE 296ml PO ONE (23:01)
[2018-05-15] MEDS: ONDANSETRON 4 MG/2 ML INJECTION IVP PRN ×2 (00:25→15:27)
[2018-05-15] MEDS: KCL IV SCH ×3 (08:16→22:54)
[2018-05-15] MEDS: MAGNESIUM SULFATE 1gm PREMIX 1 GM/100 ML BAG IV SCH ×2 (08:16→09:46)
[2018-05-15] MEDS: 1/2 NS IV SCH ×3 (08:16→22:54)
[2018-05-15] MEDS: FOLIC ACID INJ 1 MG in NS 50 ML IV SCH (08:16)
[2018-05-15] MEDS: PANTOPRAZOLE 40 MG INJECTION IVP SCH ×2 (08:17→21:51)
[2018-05-15] MEDS ORDERED: THIAMINE 200mg/2ml INJECTION IVP SCH (09:00)
[2018-05-15] MEDS: THIAMINE 100 MG in NS 100 ML IV SCH (09:04)
[2018-05-15] MEDS ORDERED: MIDAZOLAM 2mg/2ml INJECTION ONE (13:51)
[2018-05-15] MEDS ORDERED: PROPOFOL 500 MG/50 ML VIAL ONE (13:52)
--- NOTE | 2018-05-15 13:57 | Anesthesia Preoperative Report ---
Anesthesia Preoperative Record - Date and Time Date: 05/15/18 Preoperative Diagnosis: severe anemia,hypokalemia NPO Since Date: 05/14/18 NPO Since Time: 23:00 Allergies/Adverse Reactions: Allergies Allergy/AdvReac Type Severity Reaction Status Date / Time diazepam Allergy Unknown RASH Verified 05/14/18 13:55 - Vital Signs Vital Signs: Temperature 98.3 F 05/15/18 11:00 Pulse Rate 85 05/15/18 11:00 Respiratory Rate 14 05/15/18 11:00 Blood Pressure 93/59 05/15/18 11:00 Pulse Oximetry 99 05/15/18 11:00 Height and Weight: Height 5 ft 5 in Weight 59.1 kg Body Mass Index 21.1 - Medications Inpatient Medications: Current Medications Acetaminophen (Tylenol) 650 mg PO Q5H PRN PRN Reason: Pain Last Admin: 05/14/18 22:25 Dose: 650 mg Bisacodyl (Dulcolax) 10 mg RECTALLY DAILY PRN PRN Reason: Constipation Potassium Chloride/Sodium Chloride (1/2 Ns With Kcl 20meq Premix) 1,000 mls @ 100 mls/hr IV .Q10H JOSE LUIS Last Infusion: 05/15/18 13:50 Dose: 0 mls/hr Folic Acid 1 mg/ Sodium (Chloride) 50.2 mls @ 100 mls/hr IV DAILY JOSE LUIS Last Infusion: 05/15/18 09:04 Dose: Infused Thiamine HCl 100 mg/ Sodium (Chloride) 101 mls @ 200 mls/hr IV DAILY JOSE LUIS Last Infusion: 05/15/18 09:36 Dose: Infused Lidocaine HCl 10 mg/ Potassium Chloride 10 meq/ Sodium Chloride 100 mls @ 100 mls/hr IV .Q1H JOSE LUIS Stop: 05/15/18 15:29 Lorazepam (Ativan Inj) 2 - 4 mg IVP Q2H PRN PRN Reason: CIWA > 8 Last Admin: 05/15/18 02:09 Dose: 1 mg Ondansetron HCl (Zofran) 4 mg IVP Q6H PRN PRN Reason: Nausea &/or vomiting Last Admin: 05/15/18 00:25 Dose: 4 mg Oxazepam (Serax) 15 - 30 mg PO Q8H PRN Pantoprazole Sodium (Protonix Iv) 40 mg IVP BID JOSE LUIS Last Admin: 05/15/18 08:17 Dose: 40 mg Senna/Docusate Sodium (Senna Plus Tablet) 1 tab PO BID PRN PRN Reason: Constipation Sodium Chloride (Iv Flush) 10 - 80 ml IVF PRN PRN PRN Reason: Flushing Last Admin: 05/14/18 14:28 Dose: 10 ml Home Medications: Home Medications Medication Instructions Recorded Confirmed Type Allopurinol [Zyloprim] 100 mg PO DAILY 10/31/17 05/14/18 History Cholecalciferol (Vitamin D3) 5,000 unit PO DAILY 10/31/17 05/14/18 History [Vitamin D3] Cyanocobalamin (Vitamin B-12) 500 mcg PO DAILY 10/31/17 05/14/18 History [Vitamin B-12] Magnesium Oxide [Magnesium] 500 mg PO DAILY 10/31/17 05/14/18 History Metoprolol Tartrate [Lopressor] 25 mg PO BID 10/31/17 05/14/18 History Omeprazole [Prilosec] 20 mg PO BID 10/31/17 05/14/18 History Aspirin [Adult Aspirin] 81 mg PO DAILY 05/14/18 05/14/18 History Ferrous Sulfate [Iron] 325 mg PO DAILY 05/14/18 05/14/18 History Meclizine [Antivert] 25 mg PO TID PRN 05/14/18 05/14/18 History Naproxen Sodium [Aleve] 220 mg PO BID PRN 05/14/18 05/14/18 History Is Patient on Beta Ryan?: Yes - Medical History Respiratory: DENIES: Asthma, Bronchitis, Chronic Obstructive Pulmonary Disease (COPD), Dyspnea, Orthopnea, Pulmonary Embolism, Pneumonia, Upper Respiratory Infection, Pulmonary Edema, Sleep Apnea, Tuberculosis, Other Cardiovascular: Reports: Arrhythmia (Hx afib- currently SR with rate controlled) , Hypertension Gastrointestional: Reports: Gastroesophageal Reflux Disease, Hiatal Hernia, Other (RECTAL BLEEDING,DIVERTICULOSIS) Neuro/Musculoskeletal: Denies: Back Problems, Cerebrovascular Accident, Depression, Headaches, Loss of Consciousness, Muscle Weakness, Neuromuscular Disorder, Paralysis, Paresthesia, Syncope, Seizures, Other Renal/Endocrine: DENIES: Diabetes Mellitus Type 1, Diabetes Mellitus Type 2, Renal Failure, Dialysis, Thyroid Disease, Weight Loss, Weight Gain Other History: DENIES: Anesthesia Reactions, Now, Blood Transfusions, Chemotherapy , Cancer, Hemophilia, Malignant Hyperthermia, Sickle Cell Disease, Other - Surgical History HEENT Surgeries: Reports: Eye Surgery (BILATERAL CATARACTS), Tonsillectomy GI Surgery/Treatments: Reports: Colonoscopy, EGD Surgery/Treatment: REPORT: Other (CYSTOSCOPY) DENIES: Dialysis Musculoskeletal Surgery/Tx: Reports: Knee Arthroscopy (LEFT X3), Orthopedic Surgery (LEFT HIP) Reproductive Surgery/Treatment: Reports: Hysterectomy, Other Anesthesia Reactions: None Hx Family Anesthesia Reaction: No - Social History Smoking Status: Never smoker Hx Chewing Tobacco Use: Yes ( uses chew every day for last 50 yrs) Substance Use Type: does not use Alcohol Intake: current Alcohol Intake Frequency: 0-2 drinks per day Last Drink: days (ago) (2) - Pertinent Findings Laboratory: CBC and BMP 05/15/18 12:47 05/15/18 12:47 BMP 05/14/18 05/14/18 05/15/18 14:25 21:28 04:12 Sodium 144 142 Potassium 2.5 L* 3.4 L D 3.4 L Chloride 105 110 H Carbon Dioxide 21 L 20 L BUN 9.0 9.0 Creatinine 0.9 0.9 Glucose 104 102 Calcium 8.5 8.2 L 05/15/18 12:47 Sodium Potassium 3.3 L Chloride Carbon Dioxide BUN Creatinine Glucose Calcium Cardiac Enzymes 05/14/18 Range/Units 14:25 Troponin I < 0.012 (0-0.12) ng/ml Liver Function 05/14/18 Range/Units 14:25 Total Bilirubin 2.20 H (0.20-1.30) MG/DL AST 84 H (14-36) U/L ALT 27 (1-35) U/L Alkaline Phosphatase 155 H (38-126) U/L Albumin 2.8 L (3.5-5.0) g/dL Urine 05/14/18 Range/Units 15:15 Urine Color Yellow (YELLOW) Urine Clarity Sl cloudy Urine pH 6.0 (5.0-8.0) Ur Specific [place] 1.015 (1.015-1.025) Urine Protein 1+ A (NEGATIVE) Urine Glucose (UA) Negative (NEGATIVE) EKG: Sinus Rhythm - Physical Exam Respiratory Exam: Present: lungs clear, bilateral breath sounds equal Cardiovascular Exam: Present: regular rate and rhythm - Airway Assessment Mallampati Score: II TMD: 3 Fingerbreadths Neck Extension: good Overall Assessment: no airway concerns - ASA ASA Score: 3 - Plan Anesthesia: General TIVA - Discussion Discussion: Discussed risks/options/alternatives of anesthesia and questions answered. Patient consents. Nursing pain assessment noted. Attestation Statement: Prior to the delivery of any anesthetic medication, I examined the patient, developed the plan, obtained the patient's consent and discussed the risk and benefits of the procedure with the patient/guardian. - Additional Information Seen by Anesthesia: Yes
[2018-05-15] MEDS ORDERED: LIDOCAINE VISCOUS 2% ORAL LIQUID 15ml ONE (13:58)
[2018-05-15] MEDS ORDERED: NS 1,000 ML IV SCH (14:00)
[2018-05-15] MEDS ORDERED: SALINE FLUSH 10ml SYRINGE ONE (14:07)
[2018-05-15] MEDS ORDERED: PHENYLEPHRINE INJ 10 MG/ML VIAL IV ONE (14:07)
[2018-05-15] MEDS ORDERED: MAGNESIUM CITRATE 296ml PO ONE (14:09)
--- NOTE | 2018-05-15 14:18 | General Surgery Procedure Note ---
Date of Procedure: 05/15/18 Surgeon: Julien Postoperative Diagnosis: Acute lower GI tract bleeding Procedure: EGD Estimated Blood Loss: See Anesthesia Record.
--- NOTE | 2018-05-15 14:32 | Anesthesia Postoperative Note ---
- Date and Time Date: 05/15/18 Time: 14:32 - Status Patient Participated in Evaluation: Patient Participated in Person Vital Signs: Temperature 98.3 F 05/15/18 11:00 Pulse Rate 85 05/15/18 11:00 Respiratory Rate 14 05/15/18 11:00 Blood Pressure 93/59 05/15/18 11:00 Pulse Oximetry 99 05/15/18 11:00 Respiratory Function: Airway Patent, Regular Respirations Cardiovascular Function: Regular Pulse Mental Status: Alert and Oriented Pain Intensity: 0 Hydration: IV Infusing Nausea/Vomiting: None Complications During Recover: None Apparent - Follow-Up Instructions Instructions: Per Surgeon
[2018-05-15] MEDS: LIDOCAINE 1% INJ 10 MG, POTASSIUM CHLORIDE INJ 10 MEQ in NS 100 ML IV SCH ×2 (15:10→16:27)
[2018-05-15] MEDS: ACETAMINOPHEN 325 MG TABLET PO PRN ×2 (15:20→23:41)
[2018-05-15 15:27] VITALS: TEMP 96.7
--- NOTE | 2018-05-15 15:45 | Progress Note ---
- Date 05/15/18 Subjective: Mrs. Leavitt was seen late this morning prior to planned EGD. She complained of muscle spasms from minimal activity over the past 3 days. She continued to have bright red blood per rectum overnight but reports she is also passing some stool occasionally. Nursing reports are as clotted blood mixed with bright red blood. She denied dyspnea or chest pain. She had an isolated episode of emesis following magnesium citrate administration yesterday but otherwise has no upper symptoms. She is lightheaded when she is up to the bathroom but with nursing assistance she feels stable to continue getting out of bed to go to the commode. Objective Vital signs: Temperature 96.7 F L 05/15/18 15:15 Pulse Rate 80 05/15/18 15:15 Respiratory Rate 35 H 05/15/18 15:15 Blood Pressure 88/57 05/15/18 15:15 Pulse Oximetry 99-RA 05/15/18 15:15 I/O 2520/900 NAD, alert Generalized pallor Conjunctiva clear, sclera anicteric, oropharynx clear with dry membranes Respirations nonlabored, good airflow, breath sounds clear anteriorly Regular rhythm, S1-S2 Abdomen soft, modestly distended, mildly tender to palpation in the left upper quadrant without guarding, diminished bowel sounds Extremities without edema Neuro-moving all extremities well, no tremor Flat affect Rhythm: Normal Sinus Rhythm Height/Weight/BMI: Height 1.65 m Weight 59.1 kg Body Mass Index 21.1 Results - Labs CBC & Chem 7: 05/15/18 12:47 05/15/18 12:47 Labs: AM labs: WBC 14.6, platelet count 99K, Hbg 6.5--> 7.3; electrolytes notable only for depressed potassium and magnesium of 1.2 prior to supplementation. Microbiology Results: Microbiology 05/14/18 15:15 Urine, Voided (Cc/notcc) Urine Culture - Preliminary Early growth Assessment and Plan (1) GI bleed Current visit: Yes Status: Acute Assessment and Plan: Assessment: GI bleed ABLA superimposed on chronic iron deficiency anemia. In February her hgb was 8.0. Hypokalemia, POA Thrombocytopenia Chronic macrocytic anemia Alcohol abuse Transaminitis, chronic GERD Paroxysmal a-fib, not on anticoagulation HTN Hypomagnesemia Plan: Hemoglobin 5.0 on admission increasing to 7.4 after 2 units; down to 6.5 this morning. 2 additional units packed red blood cells being given today and will reassess need for ongoing transfusion based on whether bleeding continues at that time. EGD obtained this afternoon demonstrating no upper abnormalities; magnesium citrate given endoscopically to initiate bowel clearing for colonoscopy. Discussed with Dr. Victoria-if bleeding is persistent may require angiogram. Iron studies yesterday with saturation 17%, TIBC slightly depressed consistent with chronic disease. Ferritin 36-low normal range. Iron stores described as absent on recent bone marrow biopsy. Progressive drop in platelet count, continue to monitor. Suggest splenomegaly. Continue alcohol withdrawal protocol, no indication of withdrawal symptoms at this time. Potassium and magnesium replaced IV; continue to monitor. DVT Prophylaxis: SCD's GI Prophylaxis: Protonix Resuscitation Status: Full Code - Physician Narrative Narrative: Date: 05/14/18 Time: 1829 I have independently evaluated and examined this patient. I reviewed the chart, the patient's history, and the CARE ADMINISTRATIVE TECH/PA's documented findings as above. We discussed and formulated the assessment and plan as above with additions as below: Mrs. Leavitt describes 3 days of right red blood per rectum with progressive weakness/lightheadedness. Amount of blood loss has slowed down but not stopped. She's had some abdominal cramping which she characterizes as "like menstrual cramps". She denies heartburn, indigestion, or other dyspeptic symptoms. Results of recent endoscopic studies reviewed with Dr. Victoria who indicated prep for colonoscopy precluded diagnostic study. NAD, alert; multiple superficial ulcerations present on the back and chest ( back lesions all in area consistent with scratching), one lesion on right orr Respirations nonlabored Abdomen soft, moderately distended, bowel sounds present, nontender Potassium 2.5, hemoglobin 5.0 with MCV 118.5; INR 1.3. Bilirubin 2.2 AST 84, ALT normal. Acute GI bleed, likely lower-history most compatible with diverticular bleed. Discussed with Dr. Matson prior to admission and with Dr. Victoria following admission. EGD anticipated tomorrow and colonoscopy in 2-3 days following prep that will permit diagnostic study. Repeat potassium with follow-up hemoglobin to ensure adequate replacement. Macrocytic anemia felt due to chronic alcohol use per hematology; low platelet count and abnormal liver enzymes consistent with same. Hospital Course Summary Disclaimer: The visit summary below is not to be considered part of the above Progress Note. Hospital Course: 05/14/18 Admit, inpatient status to CCU. -Anemia due to GI blood loss: PRBC transfusion x2 units already ordered. Consult Dr. Victoria. Hold ASA, NSAIDS. Protonix IV BID. Diet; Clear liquids. Check iron studies prior to transfusion. Last EGD and colonoscopy on 03/13/18, Postoperative diagnoses: anemia, small hiatal hernia, internal and external hemorrhoids, moderate sigmoid colon diverticulosis -Hypokalemia-IV bolus ordered, check mag level Telemetry -Alcohol use-Seizure precautions (note above allergy to diazepam was not included in [facility] records, however, lisinopril causes a cough) Folate and thiamine Ativan/Serax PRN for CIWA >8 Thrombocytopenia appears to be a new findings. Hx of chronically elevated LFTs per [facility] records. Pt is not interested in quitting drinking. -Advanced directives-Would like to name cousin Jose as KOBI but hasn't yet talked to him about it. Code status: Full code. 05/15/18 Hemoglobin 5.0 on admission increasing to 7.4 after 2 units; down to 6.5 this morning. 2 additional units packed red blood cells being given today and will reassess need for ongoing transfusion based on whether bleeding continues at that time. EGD obtained this afternoon demonstrating no upper abnormalities; magnesium citrate given endoscopically to initiate bowel clearing for colonoscopy. Discussed with Dr. Victoria-if bleeding is persistent may require angiogram. Iron studies yesterday with saturation 17%, TIBC slightly depressed consistent with chronic disease. Ferritin 36-low normal range. Iron stores described as absent on recent bone marrow biopsy. Progressive drop in platelet count, continue to monitor. Suggest splenomegaly. Continue alcohol withdrawal protocol, no indication of withdrawal symptoms at this time. Potassium and magnesium replaced IV; continue to monitor.
--- NOTE | 2018-05-15 16:16 | Operative Note ---
DATE OF OPERATION 05/15/2018 PREOPERATIVE DIAGNOSES 1. Acute gastrointestinal tract bleeding. 2. Small hiatal hernia. POSTOPERATIVE DIAGNOSES 1. Acute lower gastrointestinal tract bleeding. 2. Small hiatal hernia. OPERATION Esophagogastroduodenoscopy SURGEON Otto Victoria MD ANESTHESIA TIVA ASA CLASS 3 FINDINGS The esophageal mucosa appeared normal. The patient does have a small hiatal hernia. Gastric mucosa appeared normal. Duodenal mucosa appeared normal. There was no bright red blood or old blood anywhere at the upper gastrointestinal tract. No source for acute gastrointestinal tract bleeding was found at the upper gastrointestinal tract. DESCRIPTION OF OPERATION The patient was brought to the endoscopy room. The patient was placed on a cart in the endoscopy room. The patient was placed in left lateral recumbent position on the cart. The patient was premedicated with intravenous sedation medication administered by the nurse manager nursing. The Olympus upper GI endoscope was used. The upper GI endoscope was introduced into the esophagus. The upper GI endoscope was advanced down through the esophagus and stomach and into the duodenum. The upper GI endoscope was then withdrawn from the duodenum back into the stomach. The upper GI endoscope was retroflexed and the gastroesophageal junction was viewed from below. The upper GI endoscope was straightened out. The stomach was examined further. The upper GI endoscope was then advanced back down through the pylorus and into the duodenum and down through the duodenum beyond the level of the duodenal bulb. A total of 296 mL of magnesium citrate was then instilled into the duodenum through the upper GI endoscope. The patient has not been able to tolerate oral intake of magnesium citrate. The patient was given some magnesium citrate at this time to begin a bowel prep for colonoscopy on the following day. The upper GI endoscope was then withdrawn out through the duodenum and through the pylorus into the stomach. The upper GI endoscope was then withdrawn out through the stomach and esophagus and removed from the patient. Findings throughout the procedure were as described above. The patient did continue to receive intravenous sedation medication administered by the nurse manager nursing throughout the operation. The patient did tolerate the operation well. [facility]
[2018-05-15] MEDS ORDERED: POLYETHYL. GLYCOL 3350 BOTTLE 238 GM PO ONE (17:15)
[2018-05-15] MEDS: LIDOCAINE 5% CREAM 15gm TOP PRN (17:48)
[2018-05-15] MEDS ORDERED: ONDANSETRON 4 MG/2 ML INJECTION IVP ONE (18:35)
[2018-05-15] MEDS: SALINE FLUSH 10ml SYRINGE IVF PRN (18:39)
[2018-05-16] MEDS: ACETAMINOPHEN 325 MG TABLET PO PRN (05:30)
[2018-05-16] MEDS: LIDOCAINE 5% CREAM 15gm TOP PRN (07:59)
[2018-05-16] MEDS: PANTOPRAZOLE 40 MG INJECTION IVP SCH (08:37)
[2018-05-16] MEDS: SALINE FLUSH 10ml SYRINGE IVF PRN (08:38)
[2018-05-16] MEDS: FOLIC ACID INJ 1 MG in NS 50 ML IV SCH (09:06)
[2018-05-16] MEDS: THIAMINE 100 MG in NS 100 ML IV SCH (09:37)
[2018-05-16] MEDS ORDERED: NS FLUSH BAG 500ml IV PRN (09:41)
[2018-05-16] MEDS: KCL IV SCH (10:41)
[2018-05-16] MEDS: 1/2 NS IV SCH (10:41)
--- NOTE | 2018-05-16 10:48 | Discharge Summary ---
Discharge Information Date of admission: 05/14/18 15:26 Anticipated date of discharge: 05/16/18 Attending Physician: Ute Dean MD Primary care physician: Cain Solis II, MD Consults: Consulting Provider: Otto Victoria Reason For Exam: GI bleed - Discharge Diagnosis (1) GI bleed Status: Acute Lower GI bleed ABLA superimposed on chronic iron deficiency anemia. Hypokalemia, POA Hypotension-intermittent Thrombocytopenia Chronic macrocytic anemia Alcohol abuse Transaminitis, chronic GERD Paroxysmal a-fib, not on anticoagulation HTN Hypomagnesemia - Procedures Procedures: EGD on 05/15/18 demonstrating normal esophageal mucosa, small hiatal hernia, normal gastric mucosa and normal duodenal mucosa. No bright red blood or old blood appeared anywhere in the upper GI tract. No source for acute GI bleed present in the upper GI tract. - Laboratory Labs: On admission 05/14/18 hemoglobin 5.0 with MCV 118.5. Platelet count 123K, WBC 10.8. INR 1.31. Admission chemistries notable for potassium 2.5, BUN 9, creatinine 0.9, magnesium 1.3, bilirubin 2.2, AST 84, ALT 27, alk phosphatase 155, albumin 2.3. Serum iron 39, TIBC 236, iron saturation 17%, ferritin 36 on 05/14/18. 05/16/18 04:15 05/16/18 04:15 On date of discharge INR 1.31, magnesium 2.1, phosphorus 2.2, calcium 7.6, albumin 2.2 - Microbiology Microbiology 05/14/18 15:15 Urine, Voided (Cc/notcc) Urine Culture - Preliminary Escherichia coli History of Present Illness HPI: Lucille Leavitt is a 62 year old woman who presented to the ED for further evaluation of 3-day history of frequent vasquez bloody stools and a couple episodes of black stools. She's felt very weak and dizzy and has felt like she might pass out. She has been very tired and fatigued. Occasionally she's had mild pelvic cramping and also feels a little bloated. She has not had an appetite but denies nausea or vomiting. She otherwise has been in her typical state of health, other than new scratches on her arms/legs from her new puppy. She denies any recent illness such as cough/congestion/sore throat, fevers/ chills, visual changes, headaches, chest pain, palpitations/fast HR, anxiety, difficulty breathing, dysuria, leg swelling or easy bruising/bleeding. She has had problems with rectal bleeding and anemia in the past but reports that they never are able to provide her with an answer to why she has recurrent bleeding. Her last EGD/colonoscopy was in Feb, [address] Victoria with postoperative diagnoses of internal and external hemorrhoids, moderate sigmoid colon diverticulosis. She also had bone marrow biopsy in March, which was negative for cancer. The patient admits to drinking 2-4 drinks of [place] and coke daily. She uses Aleve and/or ibuprofen occasionally but not routinely. She also takes ASA 81 mg daily. In the ED she was profoundly anemic with H&H of 5.0 and 16.0. Platelets were low at 123. K was also severely low at 2.5. Total bili was elevated at 2.20, AST 84, and Alk phos was 155. UA was suspicious for UTI though patient denied urinary symptoms. Her EKG showed LBBB and troponin was negative. She had low blood pressures (86/47) but was not tachycardic. She was given 500 mL fluid bolus and Protonix IV. She was typed and crossed for 2 units of PRBC. K bolus was also ordered by the ED provider. Dr. Dean was contacted and the patient was admitted to inpatient status, placed in the CCU, for symptomatic anemia secondary to GI blood loss and hypokalemia. LOS is expected to exceed 2 overnights. Objective Vital signs: Temperature 96.7 F L 05/15/18 15:15 Pulse Rate 102 H 05/16/18 08:00 Respiratory Rate 49 H 05/16/18 07:00 Blood Pressure 95/53 05/16/18 07:00 Pulse Oximetry 99-RA 05/16/18 07:00 NAD, alert, anxious/tearful at times Conjunctiva clear, sclera anicteric Respirations nonlabored, good airflow, crackles at the bases posteriorly Regular rhythm with low-grade tachycardia, S1-S2 Abdomen soft, nontender, bowel sounds present No tremor present with arms outstretched Rhythm: Normal Sinus Rhythm, Sinus Tachycardia Height/Weight/BMI: Height 1.65 m Weight 60.6 kg Body Mass Index 21.1 Hospital Course This is a general summary of the patient's hospital course. For more details refer to the complete medical record. Hospital course: 05/14/18 Admit, inpatient status to CCU. -Anemia due to GI blood loss: PRBC transfusion x2 units already ordered. Consult Dr. Victoria. Hold ASA, NSAIDS. Protonix IV BID. Diet; Clear liquids. Check iron studies prior to transfusion. Last EGD and colonoscopy on 03/13/18, Postoperative diagnoses: anemia, small hiatal hernia, internal and external hemorrhoids, moderate sigmoid colon diverticulosis-inadequate prep for diagnostic study. -Hypokalemia-IV bolus ordered, check mag level -Alcohol use-Seizure precautions (note above allergy to diazepam was not included in [facility] records, however, lisinopril causes a cough) Folate and thiamine; Ativan/Serax PRN for CIWA >8 Thrombocytopenia appears to be a new findings. Hx of chronically elevated LFTs per [facility] records. Pt is not interested in quitting drinking. -Advanced directives-Would like to name cousin Jose as DPOA but hasn't yet talked to him about it. Code status: Full code. 05/15/18 Hemoglobin 5.0 on admission increasing to 7.4 after 2 units; down to 6.5 this morning. 2 additional units packed red blood cells being given today (total 4 units since admission) and will reassess need for ongoing transfusion based on whether bleeding continues at that time. EGD obtained this afternoon demonstrating no upper abnormalities; magnesium citrate given endoscopically to initiate bowel clearing for colonoscopy. Discussed with Dr. Victoria-if bleeding is persistent may require angiogram. Iron studies yesterday with saturation 17%, TIBC slightly depressed consistent with chronic disease. Ferritin 36-low normal range. Iron stores described as absent on recent bone marrow biopsy. Progressive drop in platelet count, continue to monitor. Suggest splenomegaly. Continue alcohol withdrawal protocol, no indication of withdrawal symptoms at this time. Potassium and magnesium replaced IV; continue to monitor. 05/16/18 Hemoglobin up to 9.9 after 4th unit of blood yesterday but slow drop overnight with a.m. hemoglobin 8.0. Patient completed about half of bowel prep for colonoscopy and then refused further oral prep and colonoscopy for today was canceled. Liquid bright red stools reported this fish frog or oyster farmer by lieutenant shift supervisor nurse and again by dayshift with both liquid blood and large clots. Blood pressure transiently down to 65/44 while pt up to commode-500 ml NS fluid bolus given, 5th unit PRBC initiated. Patient describes generalized weakness with occasional lightheadedness in addition to ongoing rectal bleeding. She denies abdominal pain complaining only of hunger pain. She denied dyspnea or palpitations. Options for further management discussed with Dr. Victoria and subsequently with patient/family. Patient opted for transfer to [facility] for possible angiogram/potential surgical intervention if needed. Was offered tagged nuclear red cell scan and possible surgical intervention here but is reluctant to consider surgical interventions. Patient is aware that surgery may become necessary irrespective of physical location. Patient requested transfer to [place] and I subsequently spoke with on-call hospitalist at [place] and patient is being transferred there today for further management. Pt completed DPOA paperwork this am assigning her cousin Jose Block as DPOA , . Time spent with patient: discharge greater than 30 minutes (critically ill-at bedside [id number].) Resuscitation Status: Full Code Discharge Plan - Discharge Disposition Disposition: 02 To [facility] Acute Care *Condition: Stable Reason For Visit (Visit label in EMR): severe anemia,hypokalemia - Discharge Medications *Discharge Medications: New RX: Folic Acid Inj [Folate] 1 mg IV DAILY ml RX: Lidocaine 5% Cream [Anecream5] 1 applicatio TOP PRN PRN #1 tube PRN Reason: Anal Irritation RX: LORazepam INJ [Ativan Inj] 2 - 4 mg IVP Q2H PRN vial PRN Reason: CIWA > 8 RX: Pantoprazole IV [Protonix IV] 40 mg IVP BID vial RX: Thiamine [Vitamin B-1] 100 mg IV DAILY vial RX: Ondansetron Inj [Zofran] 4 mg IVP Q6H PRN vial PRN Reason: Nausea &/Or Vomiting RX: Oxazepam [Serax] 15 - 30 mg PO Q8H PRN #1 cap PRN Reason: Alcohol Withdrawl Symptoms RX: Senna + Docusate [Senna Plus Tablet] 1 tab PO BID PRN tab PRN Reason: Constipation Continue RX: Magnesium Oxide [Magnesium] 500 mg PO DAILY RX: Metoprolol Tartrate [Lopressor] 25 mg PO BID RX: Allopurinol [Zyloprim] 100 mg PO DAILY RX: Ferrous Sulfate [Iron] 325 mg PO DAILY RX: Meclizine [Antivert] 25 mg PO TID PRN PRN Reason: Prn Orders RX: Cholecalciferol (Vitamin D3) [Vitamin D3] 5,000 unit PO DAILY RX: Cyanocobalamin (Vitamin B-12) [Vitamin B-12] 500 mcg PO DAILY Discontinued RX: Omeprazole [Prilosec] 20 mg PO BID Naproxen Sodium [Aleve] 220 mg PO BID PRN PRN Reason: Pain Aspirin [Adult Aspirin] 81 mg PO DAILY - Referrals/Follow Up *Referrals/Follow Up: Cain Solis II, MD [Primary Care Provider] - (1 week after discharge from [place]) [facility] Christopher MD [Physician] - (As previously scheduled) - Patient Handouts - Dismissal Complete Discharge Instructions are:: Complete Physician Narrative - Narrative Attestation Narrative: Date: 05/16/18 Time: 5084
[2018-05-16 11:06] VITALS: O2SAT 100
[2018-05-16 11:52] VITALS: BP 99/54; PULSE 103; RESP 29
== END 2018-05-16 11:40 | disposition short-term general hospital (02) | DRG 378 ==
LOC: ED 13:43 → EDHOLD 15:26 → CCU 16:00
PROVIDERS: ADMIT Internal Medicine; ATTEND Internal Medicine
PROC: END.EGD (2018-05-15 12:00)